=== PATIENT | male | born 1970 | race African-American/Black ===

== ENCOUNTER 2025-10-09 16:13 | Emergency (ER) | payer SELFPAY ==
[~2025-10-09] VITALS: Ht 171.4 cm; Wt 74.5 kg
[2025-10-09 16:17] VITALS: BP 147/105; PULSE 96; RESP 32; TEMP 97.9; O2SAT 100
[2025-10-09] MEDS ORDERED: GLIP5TAB16 PO (16:26)
[2025-10-09] MEDS ORDERED: METF-1211 PO (16:26)
[2025-10-09] MEDS ORDERED: BUSP5TAB20 PO (16:28)
[2025-10-09] MEDS ORDERED: OXYC10TA59 PO (16:28)
[2025-10-09] MEDS ORDERED: CLOP75TA83 PO (16:28)
[2025-10-09] MEDS ORDERED: AMLO-258 PO (16:28)
[2025-10-09] MEDS ORDERED: ASPI-1450 PO (16:28)
[2025-10-09] MEDS ORDERED: ATOR40TA28 PO (16:28)
[2025-10-09] MEDS ORDERED: OXYC5 PO (17:36)
[2025-10-09 17:51] LABS: PLATELET COUNT (AUTO) 517 K/uL (150-450); RED BLOOD CELL COUNT(AUTO) 3.87 MIL/uL (4.50-5.90); RED CELL DISTRIBUTION WIDTH 14.1 % (11.5-14.5); WHITE BLOOD COUNT (AUTO) 9.3 K/uL (4.5-11.0)
[2025-10-09 17:55] LABS: CALCIUM, TOTAL 9.2 mg/dL (8.8-10.5); CREATININE 1.02 mg/dL (0.60-1.30); GLOMERULAR FILTR. RATE CALC > 60 mL/min (>60); GLUCOSE,RANDOM 166 mg/dL (70-110); SODIUM SERUM 137 mmol/L (136-145); UREA NITROGEN, BLOOD 8 mg/dL (7-18)
[2025-10-09] MEDS: ONDANSETRON 4 MG TABLET PO ONE (17:57)
[2025-10-09] MEDS: HYDROCODONE/ACETAMINOPHEN 5-325 MG TABLET PO ONE (17:58)
[2025-10-09 18:05] LABS: TROPONIN I-HIGH SENSITIVITY 36 ng/L (<76)
[2025-10-09] MEDS ORDERED: IOHEXOL 350 MG/ML 100 ML VIAL ONE (18:21)
[2025-10-09] MEDS ORDERED: HYDR-4062 PO (19:47)
[2025-10-09] MEDS ORDERED: POLY119P3 PO (19:47)
== END 2025-10-09 20:53 | disposition home or self-care (01) ==
LOC: EMS 16:13
DX: S22.32XA Fracture of one rib, left side, initial encounter for closed fracture (principal); R07.89 Other chest pain; E11.9 Type 2 diabetes mellitus without complications; E78.00 Pure hypercholesterolemia, unspecified; F12.90 Cannabis use, unspecified, uncomplicated; I10 Essential (primary) hypertension; Z87.891 Personal history of nicotine dependence; Z46.82 Encounter for fitting and adjustment of non-vascular catheter; Z79.02 Long term (current) use of antithrombotics/antiplatelets; Z79.82 Long term (current) use of aspirin; Z79.899 Other long term (current) drug therapy; Z98.890 Other specified postprocedural states; X58.XXXA Exposure to other specified factors, initial encounter; Y93.89 Activity, other specified; Y92.89 Other specified places as the place of occurrence of the external cause; Y99.8 Other external cause status
CPT/HCPCS: 99285; 71260; 71045; 80048; 83690; 84484; 85025; 36415; 93005; Q9967; Q0162